=== PATIENT | male | born 1990 ===

== ENCOUNTER → 2017-02-16 | Outpatient (REF) | payer OTHER | LOC: M LAB REF 15:49 | PROVIDERS: ATTEND Physician Assistant Medical | DX: R30.0 Dysuria (principal) ==

== ENCOUNTER → 2017-05-10 | Outpatient (REF) | payer OTHER | LOC: M LAB REF 09:22 | PROVIDERS: ATTEND Physician Assistant | DX: N39.0 Urinary tract infection, site not specified (principal); Z20.2 Contact with and (suspected) exposure to infections with a predominantly sexual mode of transmission ==

== ENCOUNTER → 2017-05-24 | Outpatient (REF) | payer OTHER | LOC: M LAB REF 09:31 | PROVIDERS: ATTEND Physician Assistant | DX: R30.0 Dysuria (principal) ==